=== PATIENT | female | born 1990 | race Caucasian/White ===

== ENCOUNTER 2022-12-27 09:09 | Inpatient (IN) | payer BC ==
[~2022-12-27] VITALS: Ht 149.9 cm; Wt 96.6 kg
[2022-12-27] MEDS ORDERED: CITRIC ACID/SODIUM CITRATE 30 ML UDC PO SCH (09:30)
[2022-12-27] MEDS ORDERED: METHYLERGONOVINE 0.2 MG/ML AMP IM PRN ×2 (09:30→11:45)
[2022-12-27 09:52] LABS: BILIRUBIN,URINE NEGATIVE (NEGATIVE); BLOOD, URINE NEGATIVE (NEGATIVE); COLOR,URINE YELLOW (YELLOW); LEUKOCYTE ESTERASE ,URINE 2+ (NEGATIVE); NITRITE, URINE NEGATIVE (NEGATIVE); PH,URINE 6.5 (5.0-9.0); PROTEIN,URINE NEGATIVE (NEGATIVE); UGLUCOSE NEGATIVE (NEGATIVE); UROBILINOGEN,URINE 0.2 EU/dL (0.2 - 1)
[2022-12-27] MEDS: LACTATED RINGERS 1,000 ML IV SCH ×2 (09:52→11:46)
[2022-12-27 10:04] LABS: RBC,URINE 0-5 /HPF (0-5)
[2022-12-27 10:06] LABS: BACTERIA,URINE FEW /HPF (None Seen); SQUAMOUS EPITHELIAL CELL,UR 20-50 /LPF (0-3 (FEW))
[2022-12-27 10:06] LABS: BASOPHILS % (AUTO) 0.3 % (0.0-2.0); EOSINOPHILS # (AUTO) 0.1 K/uL (0-0.4); HEMATOCRIT 34.8 % (36-48); HEMOGLOBIN 11.5 g/dL (12.0-16.0); LYMPHOCYTES # (AUTO) 2.3 K/uL (2.5-16.5); LYMPHOCYTES % (AUTO) 26.5 % (20.5-51.1); MEAN CORPUSCULAR HEMOGLOBIN 28 pg (27-31); MEAN CORPUSCULAR HGB CONC 33 g/dL (33-37); MEAN CORPUSCULAR VOLUME 85.7 fL (80-94); MONOCYTES # (AUTO) 0.7 K/uL (0.8-1.0); MONOCYTES % (AUTO) 8.1 % (1.7-9.3); NEUTROPHILS # (AUTO) 5.5 K/uL (1.8-7.7); NEUTROPHILS % (AUTO) 64.1 % (42.2-75.2); PLATELET COUNT (AUTO) 268 K/uL (140-450); RED BLOOD CELL COUNT(AUTO) 4.07 MIL/uL (4.20-5.40); RED CELL DISTRIBUTION WIDTH 16.1 % (11.6-13.7); WHITE BLOOD COUNT (AUTO) 8.6 K/uL (4.8-10.8)
[2022-12-27 10:07] LABS: APPEARANCE,URINE SLIGHTLY HAZY (CLEAR)
[2022-12-27] MEDS ORDERED: ACETAMINOPHEN 325 MG TAB PO PRN (10:10)
[2022-12-27 10:20] LABS: INR 0.88 (0.8-1.2); PARTIAL THROMBOPLASTIN TIME 28.4 secs (22-35.6); PROTHROMBIN TIME 9.3 secs (10.8-13.4)
[2022-12-27 10:21] LABS: ALBUMIN 2.6 g/dL (3.4-5.0); ANION GAP 15.6 (8-16); CALCIUM 8.5 mg/dL (8.5-10.1); CARBON DIOXIDE 21.2 mmol/L (21-32); CREATININE 0.5 mg/dL (0.6-1.3); POTASSIUM 3.8 mmol/L (3.5-5.1); TOTAL BILIRUBIN 0.3 mg/dL (0.0-1.0); TOTAL PROTEIN, SERUM 6.9 g/dL (6.4-8.2)
[2022-12-27] MEDS ORDERED: PREN-537 PO (10:53)
[2022-12-27] MEDS ORDERED: LORA5SOL77 PO (10:53)
[2022-12-27] MEDS ORDERED: TEMAZEPAM 15 MG CAP PO PRN (11:45)
[2022-12-27] MEDS ORDERED: oxyCODONE/APAP 5/325 MG 1 TAB TAB PO PRN (11:45)
[2022-12-27] MEDS ORDERED: KETOROLAC 30 MG/ML VIAL IVP PRN (11:45)
[2022-12-27] MEDS ORDERED: ceFAZolin 2,000 MG VIAL ONE (11:59)
[2022-12-27] MEDS ORDERED: MORPHINE PRES FREE 10 MG/10 ML AMP IV ONE (13:13)
[2022-12-27] MEDS ORDERED: NALBUPHINE 10 MG/ML AMP IVP PRN (14:25)
[2022-12-27] MEDS ORDERED: NALOXONE 0.4 MG/ML VIAL IVP PRN ×3 (14:25)
[2022-12-27] MEDS ORDERED: diphenhydrAMINE 50 MG/ML VIAL IVP PRN (14:25)
[2022-12-27] MEDS ORDERED: ONDANSETRON 4 MG/2 ML VIAL IVP PRN (14:25)
[2022-12-27] MEDS: OXYTOCIN 20 UNITS in LACTATED RINGERS 1,000 ML IV SCH ×2 (14:32→20:18)
[2022-12-27] MEDS ORDERED: OXYTOCIN 20 UNITS/LR PREMIX 1,000 ML IV ONE (14:37)
[2022-12-27] MEDS: KETOROLAC 30 MG/ML VIAL IM/IVP SCH ×2 (17:51→23:58)
[2022-12-27] MEDS: DOCUSATE SOD/SENNA 50/8.6 MG 1 TAB PO SCH (21:00)
[2022-12-28] MEDS ORDERED: OXYTOCIN 20 UNITS/LR PREMIX 1,000 ML IV ONE (04:07)
[2022-12-28] MEDS: OXYTOCIN 20 UNITS in LACTATED RINGERS 1,000 ML IV SCH (04:23)
[2022-12-28 05:41] LABS: BASOPHILS % (AUTO) 0.2 % (0.0-2.0); EOSINOPHILS # (AUTO) 0.1 K/uL (0-0.4); EOSINOPHILS % (AUTO) 0.6 % (0.0-4.0); HEMOGLOBIN 10.3 g/dL (12.0-16.0); LYMPHOCYTES # (AUTO) 1.4 K/uL (2.5-16.5); LYMPHOCYTES % (AUTO) 10.4 % (20.5-51.1); MEAN CORPUSCULAR HEMOGLOBIN 29 pg (27-31); MEAN CORPUSCULAR HGB CONC 33 g/dL (33-37); MONOCYTES % (AUTO) 7.3 % (1.7-9.3); NEUTROPHILS # (AUTO) 11.4 K/uL (1.8-7.7); NEUTROPHILS % (AUTO) 81.5 % (42.2-75.2); PLATELET COUNT (AUTO) 223 K/uL (140-450); RED CELL DISTRIBUTION WIDTH 15.7 % (11.6-13.7); WHITE BLOOD COUNT (AUTO) 13.9 K/uL (4.8-10.8)
[2022-12-28] MEDS: KETOROLAC 30 MG/ML VIAL IM/IVP SCH (05:58)
[2022-12-28] MEDS ORDERED: diphenhydrAMINE 50 MG CAP PO PRN (11:55)
[2022-12-28] MEDS ORDERED: CAMERA MC ONE (19:16)
[2022-12-28] MEDS: IBUPROFEN 800 MG TAB PO PRN (20:10)
[2022-12-28] MEDS: DOCUSATE SOD/SENNA 50/8.6 MG 1 TAB PO SCH (20:10)
[2022-12-29] MEDS: oxyCODONE/APAP 5/325 MG 1 TAB TAB PO PRN ×3 (05:14→16:17)
[2022-12-29] MEDS ORDERED: FLU VACCINE QS2023-24 0.5 ML SYR IMVAC ONE (06:45)
[2022-12-29] MEDS: SIMETHICONE 80 MG TAB.CHEW PO PRN ×2 (09:29→16:20)
[2022-12-29] MEDS: IBUPROFEN 800 MG TAB PO PRN (12:05)
== END 2022-12-29 17:25 | disposition home or self-care (01) | DRG 788 ==
LOC: MLD 09:09 → OBSVTOIN 10:30 → MFCC 14:25
PROVIDERS: ADMIT Obstetrics & Gynecology; ATTEND Obstetrics & Gynecology
PROC: 10D00Z1 Extraction of Products of Conception, Low, Open Approach (ICD-10-PCS; principal; 2022-12-27 12:30)
DX: O34.211 Maternal care for low transverse scar from previous cesarean delivery (principal); O16.4 Unspecified maternal hypertension, complicating childbirth; Z20.822 Contact with and (suspected) exposure to COVID-19; Z37.0 Single live birth; Z3A.38 38 weeks gestation of pregnancy
CPT/HCPCS: 36415; 80053; 81001; 85025; 85610; 85730; 86592; 86886; 86900; 86901; 87086; 88302; 90715; J1200; J1885; J2270; J2590; J7120